=== PATIENT | male | born 1990 | race Hispanic/Latino ===

== ENCOUNTER 2019-02-20 07:55 | Emergency (ER) | payer SELFPAY ==
[2019-02-20 08:30] VITALS: BP 126/77
== END 2019-02-20 08:35 | disposition home or self-care (01) | DRG 301 ==
LOC: ED 07:55
PROC: 0HQLXZZ Repair Left Lower Leg Skin, External Approach (ICD-10-PCS; principal; 2019-02-20)
DX: I83.892 Varicose veins of left lower extremity with other complications (principal)